=== PATIENT | female | born 1940 | race Caucasian/White ===

== ENCOUNTER → 2018-09-09 | Outpatient (CLI) | payer MEDICARE, BC ==
[2018-09-09 09:06] LABS: Basophils % (A) 1 %; Eosinophils # (A) 0.1 k/uL (0-0.7); Eosinophils % (A) 3 %; HCT 48.9 % (34.0-46.0); HGB 15.9 gm/dL (11.4-16.0); Lymphocytes # (A) 1.3 k/uL (1.0-4.8); Lymphocytes % (A) 39 %; MCH 30.9 pg (25.0-35.0); MCHC 32.4 g/dL (31.0-37.0); MCV 95.2 fL (80.0-100.0); Mean Platelet Volume 6.3; Monocytes # (A) 0.3 k/uL (0-1.0); Monocytes % (A) 9 %; Neutrophils # (A) 1.5 k/uL (1.3-7.7); Neutrophils % (A) 43 %; Platelet Count 233 k/uL (150-450); RBC 5.14 m/uL (3.80-5.40); RDW 13.5 % (11.5-15.5); WBC 3.4 k/uL (3.8-10.6)
[2018-09-09 18:00] LABS: Albumin 4.2 g/dL (3.80-4.90); Albumin/Globulin Ratio 2.63 (1.60-3.17); Anion Gap 8.9 mmol/L (4.00-12.00); Calcium 9.5 mg/dL (8.7-10.3); Carbon Dioxide 25.1 mmol/L (21.6-31.8); Globulin 1.6 g/dL (1.6-3.3); Potassium 4.2 mmol/L (3.5-5.5); Total Bilirubin 0.5 mg/dL (0.3-1.2); Total Protein 5.8 g/dL (6.2-8.2)
== END ==
LOC: LABWHC1 08:20
PROVIDERS: ATTEND Family Medicine
DX: I10 Essential (primary) hypertension (principal)
CPT/HCPCS: 36415; 80053; 85025

== ENCOUNTER → 2021-01-17 | Outpatient (CLI) | payer MEDICARE, BC ==
[2021-01-17 14:32] LABS: Basophils # (A) 0.03 X 10*3/uL (0.00-0.10); Basophils % (A) 0.7 %; Eosinophils # (A) 0.12 X 10*3/uL (0.04-0.35); Eosinophils % (A) 2.9 %; HCT 45.9 % (37.2-46.3); HGB 15.3 g/dL (12.0-15.0); Lymphocytes # (A) 1.63 X 10*3/uL (0.90-5.00); Lymphocytes % (A) 39.1 %; MCH 31.3 pg (27.0-32.0); MCHC 33.3 g/dL (32.0-37.0); MCV 93.9 fL (80.0-97.0); Mean Platelet Volume 10.2 fL (9.5-12.2); Monocytes # (A) 0.52 X 10*3/uL (0.20-1.00); Monocytes % (A) 12.5 %; Neutrophils # (A) 1.86 X 10*3/uL (1.80-7.70); Neutrophils % (A) 44.6 %; Platelet Count 254 X 10*3/uL (140-440); RBC 4.89 X 10*6/uL (4.10-5.20); RDW 13.1 % (11.5-14.5); WBC 4.17 X 10*3/uL (4.50-10.00)
[2021-01-17 14:44] LABS: African American GFR (CKD) 96.2 (60.0-200.0); Albumin 4.2 g/dL (3.80-4.90); Albumin/Globulin Ratio 2.33 (1.60-3.17); Anion Gap 4.7 mmol/L (4.00-12.00); BUN/Creat Ratio 15.71 Ratio (12.00-20.00); Bilirubin, Conjugated 0.2 mg/dL (0.20-0.40); Bilirubin,Unconjugated 0.5 mg/dL; Calcium 9.5 mg/dL (8.7-10.3); Carbon Dioxide 31.3 mmol/L (21.6-31.8); Chol/HDL Ratio 2.59; Globulin 1.8 g/dL (1.6-3.3); LDL Cholesterol,Calculated 111.4 mg/dL (0.0-131.0); Potassium 4.3 mmol/L (3.5-5.5); Total Bilirubin 0.7 mg/dL (0.3-1.2); VLDL Calculation 26.6 mg/dL (5.00-40.00)
== END | disposition home or self-care (01) ==
LOC: LABWHC1 08:48
PROVIDERS: ATTEND Internal Medicine Interventional Cardiology
DX: Z00.00 Encounter for general adult medical examination without abnormal findings (principal); E78.2 Mixed hyperlipidemia; I25.10 Atherosclerotic heart disease of native coronary artery without angina pectoris
CPT/HCPCS: 36415; 80053; 80061; 82248; 83721; 85025

== ENCOUNTER → 2021-07-20 | Outpatient (CLI) | payer MEDICARE, BC ==
[2021-07-20 15:25] LABS: African American GFR (CKD) 95.5 (60.0-200.0); Blood Urea Nitrogen 13.7 mg/dL (9.0-27.0); Non-African American GFR(CKD) 82.4 (60.0-200.0)
== END | disposition home or self-care (01) ==
LOC: LABWHC1 10:10
PROVIDERS: ATTEND Psychiatry & Neurology Neurology
DX: Z13.89 Encounter for screening for other disorder (principal)
CPT/HCPCS: 36415; 82565; 84520

== ENCOUNTER → 2021-08-18 | Outpatient (CLI) | payer MEDICARE, BC ==
[2021-08-18 08:19] VITALS: BP 111/70; PULSE 76; RESP 18; TEMP 98.1
--- NOTE | 2021-08-18 08:21 | P.CON ---
Consult Note - . Consult date: 08/18/21 Assessment/Plan:: HISTORY OF PRESENT ILLNESS: 81 yr old female presents as a referral from Dr. Palafox for an evaluation. Patient complains of neck pain at the base of her neck that radiates to her right eye > left and also her right shoulder. Patient states pain is 3 out of 10 in intensity but escalates as highest 10 out of 10 in intensity with provocation. At times patient feels that her "head will explode." She states pain is provoked with stress, fatigue, for flexion of the neck and template climate. It is alleviated with medications such as aspirin or Excedrin and Motrin, topical medications, injections, heat, physical therapy years ago, chiropractic treatments currently, home exercise regimen currently, massage currently and rest PMH: Lyme Disease PSH: Right thumb surgery. Right toe spur. Kyphoplasty SH: 2-pack-year tobacco user quit 58 years ago. Occasional alcohol use. FH: Noncontributory All: See list Meds: Denies REVIEW OF ORGAN SYSTEMS: CONSTITUTIONAL: No fevers or chills. No recent weight loss. HEENT: No visual acuity loss, eye pain, difficulties with hearing. No nosebleeds. No difficulty swallowing. RESPIRATORY: Denies any troubles with breathing or dyspnea on exertion. CARDIOVASCULAR: Denies any chest pain, palpitations, or recent heart attacks. GASTROINTESTINAL: Denies fatty food intolerance. Has change in bowel habits and gas bloat. GENITOURINARY: Denies any blood in urine. Has increased urinary frequency. NEUROLOGICAL: + numbness and tingling along the distal extremities. No seizure disorders or headaches. MUSCULOSKELETAL: + back pain SKIN: No skin cancer. No rash. PSYCHIATRIC: Denies current depression or suicidal thoughts. ENDOCRINE: Denies current thyroid disorders. Denies any blood sugar glucose intolerance. HEME/LYMPHATIC: Denies any lumps and bumps around the neck. History of deep venous thrombosis. ALLERGY/IMMUNOLOGY: No immunoglobulin therapy. No immune deficiencies. BREAST: Denies current breast lumps, pain or nipple discharge. Physical Examinations : Constitutional : Cooperative , not in acute distress . HEENT: Neck supple. No Lymphadenopathy. Normal thyroid size . Tenderness to palpation over the greater occipital nerves greater on the right than the left Eyes no ptosis , no icterus, no photophobia . Hearing intact. Normal oropharynx. No Thrush. Respiratory : Chest clear to auscultations bilaterally. No wheezing. No rhonchi. Cardiovascular : Regular rate and rhythm , S1 / S2. No S3 . No S4. Gastrointestinal : Abdomen soft. No tenderness. Bowel sounds x 4. No organomegaly . Genitourinary : Deferred. Neurologic : Cranial nerve II to XII intact. No focal neurological deficits. Psychiatric : alert & oriented x 3. Matching mood & appropriate affect. Judgment & insight intact. Lymphatic No Lymphadenopathy. Musculoskeletal : Cervical Spine Motor strength in the deltoid and biceps: Normal right side. Normal Left side Motor strength biceps and the wrist extensors: Normal right side . Normal left side Motor strength in the triceps muscle: Normal right side. Normal left side Deep tendon reflexes: Normal at the biceps. Normal at Brachioradialis. Normal at triceps Mild vertebral body tenderness to deep palpation over the C5, C6, C7 Cervical facet loading test: positive bilaterally over the C5-C6 and C6-C7 Spurling test: positive bilaterally Neck distraction test: positive bilaterally Sue sign: positive bilaterally Lumbar spine Motor strength lower extremities ,thigh and legs 5/5 Right side , 5/5 Left side Deep tendon reflexes : Normal Knee Jerk. Normal Ankle Jerk Lumbar facet Loading Test: positive Right / positive Left Range of motion of the lumbar spine Flexion 30 degrees, extension 10 degrees Straight Leg Raise test: Left/ Right positive at degree Michelle test: positive right / positive left. Severe tenderness over the Sacroiliac joint on the Right / Left sides Gaenslen test: positive bilaterally Seated flexion test: positive bilaterally. Assessment/ Plan : Recommended mentation of bilateral greater occipital nerve injections Patient may need a series based on response to treatment Discussed discontinuation of aspirin and Motrin 5 days prior to procedure Risks, benefits of procedure discussed and patient verbalized understanding All questions answered I have spent greater than 50 minutes on patient care today. Dr Perez was available by phone for the evaluation of this patient. The time was used to review the medical records including relevant urine studies and Prescription history (MAPs), review of the available imaging, evaluation and examination of the patient, coordination of care with the medical staff and if applicable referring physicians, as well as creation of the medical record PQRS Measure Charge Sheet Mode of Arrival: Ambulatory - Pain Location Right Shoulder Non-Pharmacological Interventions: Chiropractic Treatment, Heat, Ice, Massage, Position/Reposition, Stretching Pharmacological Interventions: PRN Medication, Topical Medication PQRS Narrative: Smoking Status Former smoker Blood Pressure 111/70 Pain Intensity [Right Shoulder 3 ] Scale Used Numeric (1 - 10) Hx Alcohol Use (MH) Yes Home Medications: Ambulatory Orders SUMAtriptan SUCCINATE [Imitrex] 25 mg PO DIRECTED PRN 05/26/15 Fluticasone Nasal [place] [Flonase Nasal [place]] 1 spray EA NOSTRIL DAILY PRN 08/17/21 Latanoprost/Pf [Latanoprost 0.005% Eye Drop] 1 drop BOTH EYES HS 08/17/21 Pantoprazole Sodium [Protonix] 40 mg PO Q48H 08/17/21
== END ==
LOC: PNWHC3 07:18
PROVIDERS: ATTEND Physician Assistant Medical
DX: M54.2 Cervicalgia (principal); Z87.891 Personal history of nicotine dependence; Z88.8 Allergy status to other drugs, medicaments and biological substances
CPT/HCPCS: 99211

== ENCOUNTER 2021-08-30 06:10 | Day surgery (SDC) | payer MEDICARE, BC ==
[2021-08-30 06:35] VITALS: TEMP 98.6
[2021-08-30] MEDS ORDERED: LACTATED RINGERS 1,000 ML IV ONE (06:48)
[2021-08-30] MEDS ORDERED: LACTATED RINGERS 1,000 ML IV SCH (06:54)
[2021-08-30] MEDS ORDERED: ROPIVACAINE 5MG/ML 20ML VIAL ONE (06:57)
[2021-08-30] MEDS ORDERED: methylPREDNISolone ACETATE 40 MG/ML 1 ML VIAL ONE (06:57)
[2021-08-30] MEDS ORDERED: MIDAZOLAM 2 MG/2 ML VIAL ONE (06:57)
[2021-08-30] MEDS ORDERED: fentaNYL (PF) 50 MCG/ML 2 ML AMP ONE (06:57)
--- NOTE | 2021-08-30 07:06 | P.PCN ---
Date of Procedure: 08/30/21 Procedure(s) Performed: Preoperative diagnoses= 1- Greater occipital neuralgia. 2-cervical spondylosis. 3-cervicogenic headache Postoperative diagnoses= same as preoperative diagnosis. Procedure= Bilateral Greater occipital nerve block Anesthesia= moderate sedation with Versed 1 mg and fentanyl 50 micrograms . Estimated blood loss=minimal. Procedure indication= the patient had a history of severe chronic neck pain ,and headache, diagnosed with occipital neuralgia exam was positive for severe tenderness over the occipital nerve bilaterally, she will be a good candidate occipital nerve block, patient failed conservative management Procedure description= the patient was seen and identified in the preoperative holding area, risks and benefits and alternative of the procedure and possible complications discussed with the patient, and he agreed with the preceding, patient signed the consent, an IV was started, and vital signs were monitored and were stable throughout the procedure, patient was placed in the sitting position or table and the neck area was prepped and draped with a sterile fashion, vital signs were closely monitored during the procedure, 25-gauge needle advanced 1 inch lateral to the occipital protuberance on the right side, at the location of the right occipital nerve , then after negative aspiration for heme and CSF and there was no paresthesia during the injection, 6 ml of Robivacaine 0.5% and 20 mg of Depo-Medrol injected after negative aspiration, the needle removed, and the entire same procedure was repeated for the left Greater occipital nerve. Patient tolerated the procedure well without any complication, The patient returned to supine position after the back was cleaned and a Band- Aid applied, the patient transported to recovery room in stable condition and he was monitored for 30 minutes before he was discharged home and then patient was reexamined before going home and patient was discharged in stable condition and patient will follow up with the pain clinic in a few weeks.
[2021-08-30] MEDS ORDERED: IV FLUID CONTINUATION 1,000 ML IV ONE (07:08)
[2021-08-30 07:12] VITALS: RESP 16
[2021-08-30 07:21] VITALS: BP 120/57; PULSE 63
== END 2021-08-30 07:35 | disposition home or self-care (01) ==
LOC: ORPAIN 06:10
PROVIDERS: ATTEND Specialist
DX: M54.81 Occipital neuralgia (principal); M47.812 Spondylosis without myelopathy or radiculopathy, cervical region; G44.86 Cervicogenic headache; Z88.8 Allergy status to other drugs, medicaments and biological substances
CPT/HCPCS: 64405; J2250; J1030; J3010; J2795

== ENCOUNTER → 2021-09-06 | Outpatient (CLI) | payer MEDICARE, BC ==
--- NOTE | 2021-09-06 10:19 | US ---
EXAMINATION TYPE: US thyroid st tissue head/neck DATE OF EXAM: 09/06/2021 COMPARISON: NONE CLINICAL HISTORY: E04.1. GLAND SIZE: Right Lobe: 5.0 x 1.7 x 1.7 cm Overall Parenchyma: mildly heterogeneous Left Lobe: 4.3 x 1.6 x 1.9 cm Overall Parenchyma: mildly heterogeneous Isthmus Thickness: 0.2 cm NODULES RIGHT: # of nodules measured on right: 1 1. 0.5 X 0.3 x 0.4 cm, upper lateral, cystic or almost completely cystic, anechoic nodule, which is wider than tall, with smooth margins, with echogenic foci. No prior LEFT: # of nodules measured on left: 0 ISTHMUS: # of nodules measured in the isthmus: 0 Bilateral neck scanned, no evidence of lymphadenopathy. Slightly heterogeneous normal-sized thyroid with 5 mm cystic nodule right thyroid lobe marked by tech nologists and upper pole level has single echogenic focus. IMPRESSION: Normal-sized slightly heterogeneous thyroid without significant solid nodule.
== END | disposition home or self-care (01) ==
LOC: RADUSWWP 09:39
PROVIDERS: ATTEND General Practice
DX: E04.1 Nontoxic single thyroid nodule (principal)
CPT/HCPCS: 76536

== ENCOUNTER → 2021-10-05 | Outpatient (CLI) | payer MEDICARE, BC ==
--- NOTE | 2021-10-05 10:33 | P.PN ---
Subjective Progress Note Date: 10/05/21 Principal diagnosis: A 81 yr old female with a history of severe and chronic neck pain secondary to cervical degenerative disc diseases and spondylosis with facet arthropathy presents today for evaluation status post bilateral greater occipital nerve injections #2. She states she sustained 6% pain relief status post procedures. She states she still has migraines but they are not daily anymore area. Pain level waxes and wanes throughout the day based on activity but is currently 2 out of 10, deep, achy, sharp, and a pressure-type sensation in the base of the neck with radiation of pain up the right scalp and wraps around the head as well as the right crook of her neck. Pain is provoked by extension. Pain is alleviated with medications, topicals, alternating heat and ice, monthly chiropractic treatments, monthly massage therapy sessions, sitting in a dark room, stretching and rest. Interventional pain procedures completed include BL KATIE #3 Patient is currently on ASA 81mg, Excedrin Migraine, Imitrex Patient denies any side effects of the medication(s), denies excessive drowsiness or sleepiness, denies suicidal ideation and reports that the current pain medication is helping to control the pain and improve activities of daily living. Patient denies any motor or sensory deficits. Patient denies any fever or night sweats, denies any change in the bowel movements or urination. Physical Examination: -Constitutional: Cooperative. Not in acute distress . -HEENT: Neck is supple. No lymphadenopathy. No thyromegaly. Normal thyroid size. Eyes: No ptosis , no icterus, no photophobia. ENT: No auditory deficits. Normal oropharynx. No Thrush. - Respiratory: Chest clear to auscultations bilaterally. No wheezing. No rhonchi. - Cardiovascular: Regular rate and rhythm. S1 / S2 , no S3 , no S4. - Gastrointestinal: Abdomen soft no tenderness. Bowel sounds positive in all four quadrants. No organomegaly. - Genitourinary: Deferred. - Neurologic: Cranial nerve II to XII intact. No focal neurological deficits . - Psychatric: Alert & oriented x 3. Matching mood & appropriate affect. Judgment and insight intact. - Lymphatic: No Lymphadenopathy. - Musculoskeletal: Cervical spine: Tenderness to palpation over BL GONs & LONs, R > L Muscle bulk/ tone/ strength in the bilateral upper extremities normal. Facet loading test cervical area positive. Lumbar spine: Motor bulk/ tone/ strength lower extremities , thigh and legs : 5/5 Deep tendon reflexes : Normal Knee Jerk. Normal Ankle Jerk . Vertebral body tenderness to palpation over Lumbar Facet Loading Test positive Straight Leg Raise: positive at 30 degrees right side/ left side Gaenslen's Test positive Sacral spine : Severe tenderness over the Sacroiliac joint: right side / left side Range of motion: Flexion of the lumbar spine <60 degrees Range of motion: Extension of the lumbar spine <20 degrees Gaenslen's Test positive Michelle test: positive right side / left side Assessment and plan: Chronic neck pain secondary to cervical degenerative disc disease , spondylosis with facet arthropathy without myelopathy Recommendation of bilateral greater occipital nerve and lesser occipital nerve injections. Patient is interested in a series of 3 as she feels she does not have sufficient pain relief at this time. Risks, benefits of procedure discussed and patient verbalized understanding. All questions answered. Denies medical history of diabetes. Admits to aspirin 81 mg use. Protocol for discontinuation/ continuation of medications mike procedure discussed. MAPS reviewed and it was appropriate. I have spent 31 minutes on patient care today. Dr Perez was available by phone for the evaluation of this patient. The time was used to review the medical records including relevant urine studies and Prescription history (MAPs), review of the available imaging, evaluation and examination of the patient, coordination of care with the medical staff and if applicable referring physicians, as well as creation of the medical record PQRS Measure Charge Sheet - Pain Location Neck Non-Pharmacological Interventions: Chiropractic Treatment, Stretching PQRS Narrative: Smoking Status Former smoker Pain Intensity [Neck] 3 Scale Used Numeric (1 - 10) Hx Alcohol Use (MH) Yes Home Medications: Ambulatory Orders SUMAtriptan SUCCINATE [Imitrex] 25 mg PO DIRECTED PRN 05/26/15 Latanoprost/Pf [Latanoprost 0.005% Eye Drop] 1 drop BOTH EYES Q48H 08/17/21 Pantoprazole Sodium [Protonix] 40 mg PO Q48H 08/17/21 Aspirin 1 dose PO DIRECTED PRN 10/03/21 Aspirin 650 mg PO DAILY PRN 10/03/21 Aspirin/Acetaminophen/Caffeine [Excedrin Migraine Cap[place]] 1 dose PO DIRECTED PRN 10/03/21 Calcium Carbonate [Calcium] 1,200 mg PO DAILY 10/03/21 Chlorella Supplement 1 dose PO DIRECTED 10/03/21 Cholecalciferol [Vitamin D3 (25 Mcg = 1000 Iu)] 6,000 units PO DAILY 10/03/21 Cilantro 1 tab PO DAILY 10/03/21 Magnesium 200 mg PO DAILY 10/03/21 Melatonin 5 mg PO DAILY PRN 10/03/21 Pyridoxine HCl (Vitamin B6) [Vitamin B-6] 100 mg PO DAILY 10/03/21 Vitamin C Plus Supplement 1 dose PO DAILY 10/03/21
[2021-10-05 11:53] VITALS: BP 138/68; RESP 18; TEMP 98.3
== END ==
LOC: PNWHC3 09:51
PROVIDERS: ATTEND Specialist
DX: M50.30 Other cervical disc degeneration, unspecified cervical region (principal); M47.812 Spondylosis without myelopathy or radiculopathy, cervical region; G89.29 Other chronic pain; G43.909 Migraine, unspecified, not intractable, without status migrainosus; Z87.891 Personal history of nicotine dependence; Z91.011 Allergy to milk products; Z91.012 Allergy to eggs; Z88.8 Allergy status to other drugs, medicaments and biological substances
CPT/HCPCS: 99211

== ENCOUNTER 2021-11-15 09:47 | Day surgery (SDC) | payer MEDICARE, BC ==
[2021-11-14 14:49] VITALS: BMI 29.2
[2021-11-15] MEDS ORDERED: LIDOCAINE 1% (10MG/ML) FOR IV START INTRADERMA PRN (10:00)
[2021-11-15] MEDS ORDERED: LACTATED RINGERS 1,000 ML IV SCH (10:00)
[2021-11-15 10:09] VITALS: TEMP 97.2
[2021-11-15] MEDS ORDERED: ROPIVACAINE 5MG/ML 20ML VIAL ONE (10:36)
[2021-11-15] MEDS ORDERED: methylPREDNISolone ACETATE 40 MG/ML 1 ML VIAL ONE (10:36)
[2021-11-15] MEDS ORDERED: MIDAZOLAM 2 MG/2 ML VIAL ONE (10:36)
[2021-11-15] MEDS ORDERED: fentaNYL (PF) 50 MCG/ML 2 ML AMP ONE (10:36)
--- NOTE | 2021-11-15 10:53 | P.PCN ---
Date of Procedure: 11/15/21 Procedure(s) Performed: Preoperative diagnoses= 1- Greater and Lesser occipital neuralgia. 2-cervical spondylosis with cervical facet arthropathy. 3-cervicogenic headache Postoperative diagnoses= same as preoperative diagnosis. Procedure= Bilateral Greater and lesser occipital nerve block Anesthesia= moderate sedation with Versed 2 mg and fentanyl 100 micrograms . Estimated blood loss=minimal. Procedure indication= the patient had a history of severe chronic neck pain ,and headache, diagnosed with occipital neuralgia exam was positive for severe tenderness over the occipital nerve bilaterally, she will be a good candidate occipital nerve block, patient failed conservative management Procedure description= the patient was seen and identified in the preoperative holding area, risks and benefits and alternative of the procedure and possible complications discussed with the patient, and he agreed with the preceding, patient signed the consent, an IV was started, and vital signs were monitored and were stable throughout the procedure, patient was placed in the sitting pos ition or table and the neck area was prepped and draped with a sterile fashion, vital signs were closely monitored during the procedure, 25-gauge needle advanced 1 inch lateral to the occipital protuberance on the right side, at the location of the right occipital nerve , then after negative aspiration for heme and CSF and there was no paresthesia during the injection, 3 ml of Robivacaine 0.5% and 10 mg of Depo-Medrol injected after negative aspiration, then after that the needle advanced towards the location of the right lesser occipital nerve , then after appropriate needle placement confirmed , after negative aspiration , Ropivacaine 0.5% 2 ml and 10 mg of Depo-Medrol injected after negative aspiration to block the right lesser occipital nerve the needle removed, and the entire same procedure was repeated for the left Greater and left lesser occipital nerve. Patient tolerated the procedure well without any complication, The patient returned to supine position after the back was cleaned and a Band- Aid applied, the patient transported to recovery room in stable condition and he was monitored for 30 minutes before he was discharged home and then patient was reexamined before going home and patient was discharged in stable condition and patient will follow up with the pain clinic in a few weeks.
[2021-11-15] MEDS ORDERED: IV FLUID CONTINUATION 1,000 ML IV ONE (10:55)
[2021-11-15 11:13] VITALS: BP 146/75; PULSE 68; RESP 17
== END 2021-11-15 11:25 | disposition home or self-care (01) ==
LOC: ORPAIN 09:47
PROVIDERS: ATTEND Specialist
DX: M54.81 Occipital neuralgia (principal); M47.812 Spondylosis without myelopathy or radiculopathy, cervical region; G44.86 Cervicogenic headache
CPT/HCPCS: 64405; J2250; J1030; J3010; J2795; 99152

== ENCOUNTER → 2021-12-01 | Outpatient (CLI) | payer MEDICARE, BC | LOC: PNWHC3 15:41 | PROVIDERS: ATTEND Specialist | DX: M50.30 Other cervical disc degeneration, unspecified cervical region (principal); I10 Essential (primary) hypertension; Z91.011 Allergy to milk products; Z91.012 Allergy to eggs; Z91.018 Allergy to other foods; Z91.014 Allergy to mammalian meats; Z88.8 Allergy status to other drugs, medicaments and biological substances; Z87.891 Personal history of nicotine dependence | CPT/HCPCS: 99211 ==

== ENCOUNTER 2022-01-07 18:39 | Emergency (ER) | payer MEDICARE, BC ==
[2022-01-07] MEDS ORDERED: SODIUM CHLORIDE 0.9% 500 ML 500 ML IV ONE (20:46)
--- NOTE | 2022-01-07 21:48 | CT ---
EXAMINATION TYPE: CT abdomen pelvis wo con DATE OF EXAM: 01/07/2022 COMPARISON: None HISTORY: bilateral flank pain CT DLP: 694.6 mGycm Automated exposure control for dose reduction was used. Images obtained from the diaphragm to the floor the pelvis without contrast. Lung bases are clear of consolidation. No pleural effusion. There is subsegmental atelectasis left anuj ng base. Heart size is normal. No pericardial effusion. Liver spleen and stomach pancreas and gallbladder appear intact. The bile duct are not dilated. There is no adrenal mass. Kidneys show normal size and contour. There is no hydronephrosis. Ureters a re not dilated. There is no retroperitoneal adenopathy. The bladder distends smoothly. No inguinal he rnia. No pelvic mass. No free fluid in the pelvis. Uterus is anteverted. There are multiple sigmoid d iverticula. No diverticulitis. There is L2 25% compression deformity with vertebroplasty. Abdominal aorta is atheromatous. The bony pelvis is intact. Hip joints are intact. IMPRESSION: There is sigmoid diverticulosis without diverticulitis. No evidence of renal stone or obstruction. Ap pendix not clearly seen. No sign of thickened appendix.
[2022-01-07 21:54] VITALS: RESP 18
--- NOTE | 2022-01-07 22:04 | ED ---
General Adult HPI - General Chief complaint: Urogenital Stated complaint: kidney infection Time Seen by Provider: 01/07/22 20:15 Source: patient Mode of arrival: ambulatory Limitations: no limitations - History of Present Illness Initial comments: 81 year-old female patient presents to the emergency department for evaluation for possible kidney infection. Patient has been on three courses of antibiotics over the last two months. She started with Bactrim, then completed 10 day course of Keflex, and is now taking Macrobid. States she has been having left flank pain for the last 15 days. States it is now in both sides. States symptoms started with hematuria. States she has been drinking up to 2 gallons of water per day so no longer notices the hematuria. She denies any fever or chills. States she has been nauseated but is not vomiting. She denies history of frequent UTI. She denies any abdominal pain. Denies use of blood thinners. Patient denies any recent rash, cough, shortness of breath, chest pain, diarrhea, constipation, numbness, tingling, dizziness, weakness, visual changes, or any other complaints. She is taking cranberry supplements, using essential oils, and did a detox bath today. - Related Data Home Medications Medication Instructions Recorded Confirmed SUMAtriptan succinate [Imitrex] 25 mg PO DIRECTED PRN 05/26/15 11/14/21 Latanoprost/Pf [Latanoprost 0.005% 1 drop BOTH EYES Q48H 08/17/21 11/14/21 Eye Drop] Pantoprazole Sodium [Protonix] 40 mg PO Q48H 08/17/21 11/14/21 Aspirin 650 mg PO DAILY PRN 10/03/21 11/14/21 Aspirin/Acetaminophen/Caffeine 1 dose PO DIRECTED PRN 10/03/21 10/05/21 [Excedrin Migraine Caplet] Calcium Carbonate [Calcium] 1,200 mg PO DAILY 10/03/21 11/14/21 Chlorella Supplement 1 dose PO DIRECTED 10/03/21 11/14/21 Cholecalciferol [Vitamin D3 (25 6,000 units PO DAILY 10/03/21 11/14/21 Mcg = 1000 Iu)] Cilantro 1 tab PO DAILY 10/03/21 11/14/21 Magnesium 200 mg PO DAILY 10/03/21 11/14/21 Melatonin 5 mg PO DAILY PRN 10/03/21 11/14/21 Vitamin C Plus Supplement 1 dose PO DAILY 10/03/21 10/05/21 Ibuprofen [Motrin Ib] 200 mg PO DIRECTED PRN 11/14/21 11/14/21 Thc Gummies 1 dose PO HS PRN 11/14/21 diphenhydrAMINE [Benadryl] 12.5 mg PO DAILY PRN 11/14/21 11/14/21 Allergies Allergy/AdvReac Type Severity Reaction Status Date / Time Beef Containing Products Allergy Unknown postitve Verified 01/07/22 20:03 [Beef] allergy test garlic Allergy positive Verified 01/07/22 20:03 allergy test propranolol HCl Allergy Rash/Hives Verified 01/07/22 20:03 [From Inderal LA] egg AdvReac Unknown SINUS Verified 01/07/22 20:03 SYMPTOMS AND JOINT PAIN milk AdvReac Unknown SINUS Verified 01/07/22 20:03 SYMPTOMS AND JOINT PAIN eye drops for occular HTN Allergy increased Uncoded 01/07/22 20:03 pressure, turned eyes red Review of Systems ROS Statement: Those systems with pertinent positive or pertinent negative responses have been documented in the HPI. ROS Other: All systems not noted in ROS Statement are negative. Past Medical History Past Medical History: Eye Disorder, GERD/Reflux Additional Past Medical History / Comment(s): MIGRAINES, HX FX L2, GLAUCOMA, OCULAR HYPERTENSION, Left Bundle Branch Block- follows up with [employer] yearly., HX OF SHINGLES WITH LEFT SHOULDER NERVE PAIN., NEW DIAGNOSIS OF LYME DISEASE. History of Any Multi-Drug Resistant Organisms: None Reported Past Surgical History: Tubal Ligation Additional Past Surgical History / Comment(s): BILATERAL CATARACTS, LASER FOR GLAUCOMA, CRIS EYELID SX, RECTAL FISSURE REPAIR, KYPHPLASTY, RIGHT THUMB JOINT REPLACEMENT, BIG TOE RIGHT FOOT BONE SPUR REMOVED., PAIN CLINIC PROCEDURES Past Anesthesia/Blood Transfusion Reactions: No Reported Reaction Past Psychological History: No Psychological Hx Reported Smoking Status: Former smoker Past Alcohol Use History: Daily Past Drug Use History: Marijuana - Past Family History Father Family Medical History: Cancer Additional Family Medical History / Comment(s): Lung cancer. Sister(s) Family Medical History: Cancer Additional Family Medical History / Comment(s): Breast cancer. Mother Family Medical History: No Reported History General Exam Limitations: no limitations General appearance: alert, in no apparent distress, other (This is a well- developed, well-nourished elderly female patient in no acute distress.) Eye exam: Present: normal appearance, PERRL, EOMI. Absent: scleral icterus, conjunctival injection, periorbital swelling Respiratory exam: Present: normal lung sounds bilaterally. Absent: respiratory distress, wheezes, rales, rhonchi, stridor Cardiovascular Exam: Present: regular rate, normal rhythm, normal heart sounds. Absent: systolic murmur, diastolic murmur, rubs, gallop, clicks GI/Abdominal exam: Present: soft, normal bowel sounds. Absent: distended, tenderness, guarding, rebound, rigid Back exam: Present: normal inspection, CVA tenderness (R), CVA tenderness (L) Neurological exam: Present: alert, oriented X3, CN II-XII intact Psychiatric exam: Present: normal affect, normal mood Skin exam: Present: warm, dry, intact, normal color. Absent: rash Course Vital Signs 01/07/22 01/07/22 20:00 21:53 Temperature 97.7 F Pulse Rate 78 68 Respiratory 19 18 Rate Blood Pressure 169/92 155/74 O2 Sat by Pulse 99 94 L Oximetry Medical Decision Making - Medical Decision Making 81-year-old female patient presents for evaluation of worsening back pain and urinary symptoms. Physical examination did reveal bilateral CVA tenderness. She is neurovascularly and neurologically intact. No red flags spinal symptoms. Labs reviewed and are unremarkable. Urinalysis is negative. CT abdomen and pelvis without contrast was obtained and is normal. I did discuss findings and results with her. She'll be discharged. Her primary care physician for recheck early next week. She is instructed to continue her antibiotic. Return parameters were discussed in detail. She verbalizes understanding and agrees with this plan. My attending is Dr. Hunt. - Lab Data Result diagrams: 01/07/22 21:40 01/07/22 21:40 Lab Results 01/07/22 01/07/22 01/07/22 Range/Units 21:40 21:40 21:40 WBC 5.4 (3.8-10.6) k/uL RBC 4.67 (3.80-5.40) m/uL Hgb 14.9 (11.4-16.0) gm/dL Hct 44.4 (34.0-46.0) % MCV 95.0 (80.0-100.0) fL MCH 32.0 (25.0-35.0) pg MCHC 33.7 (31.0-37.0) g/dL RDW 12.7 (11.5-15.5) % Plt Count 230 (150-450) k/uL MPV 7.4 Neutrophils % 50 % Lymphocytes % 34 % Monocytes % 9 % Eosinophils % 3 % Basophils % 1 % Neutrophils # 2.7 (1.3-7.7) k/uL Lymphocytes # 1.8 (1.0-4.8) k/uL Monocytes # 0.5 (0-1.0) k/uL Eosinophils # 0.1 (0-0.7) k/uL Basophils # 0.1 (0-0.2) k/uL Sodium 134 L (137-145) mmol/L Potassium 4.2 (3.5-5.1) mmol/L Chloride 102 (98-107) mmol/L Carbon Dioxide 24 (22-30) mmol/L Anion Gap 8 mmol/L BUN 19 H (7-17) mg/dL Creatinine 0.86 (0.52-1.04) mg/dL Est GFR (CKD-EPI)AfAm 75 (>60 ml/min/1.73 sqM) Est GFR (CKD-EPI)NonAf 65 (>60 ml/min/1.73 sqM) Glucose 95 (74-99) mg/dL Plasma Lactic Acid Jose A (0.7-2.0) mmol/L Calcium 9.3 (8.4-10.2) mg/dL Total Bilirubin 0.6 (0.2-1.3) mg/dL AST 36 (14-36) U/L ALT 20 (4-34) U/L Alkaline Phosphatase 63 (38-126) U/L Total Protein 6.6 (6.3-8.2) g/dL Albumin 4.4 (3.5-5.0) g/dL Urine Color Yellow Urine Appearance Clear (Clear) Urine pH 5.5 (5.0-8.0) Ur Specific Yeoman 1.012 (1.001-1.035) Urine Protein Negative (Negative) Urine Glucose (UA) Negative (Negative) Urine Ketones Negative (Negative) Urine Blood Negative (Negative) Urine Nitrite Negative (Negative) Urine Bilirubin Negative (Negative) Urine Urobilinogen <2.0 (<2.0) mg/dL Ur Leukocyte Esterase Negative (Negative) 01/07/22 Range/Units 21:40 WBC (3.8-10.6) k/uL RBC (3.80-5.40) m/uL Hgb (11.4-16.0) gm/dL Hct (34.0-46.0) % MCV (80.0-100.0) fL MCH (25.0-35.0) pg MCHC (31.0-37.0) g/dL RDW (11.5-15.5) % Plt Count (150-450) k/uL MPV Neutrophils % % Lymphocytes % % Monocytes % % Eosinophils % % Basophils % % Neutrophils # (1.3-7.7) k/uL Lymphocytes # (1.0-4.8) k/uL Monocytes # (0-1.0) k/uL Eosinophils # (0-0.7) k/uL Basophils # (0-0.2) k/uL Sodium (137-145) mmol/L Potassium (3.5-5.1) mmol/L Chloride (98-107) mmol/L Carbon Dioxide (22-30) mmol/L Anion Gap mmol/L BUN (7-17) mg/dL Creatinine (0.52-1.04) mg/dL Est GFR (CKD-EPI)AfAm (>60 ml/min/1.73 sqM) Est GFR (CKD-EPI)NonAf (>60 ml/min/1.73 sqM) Glucose (74-99) mg/dL Plasma Lactic Acid Jose A 1.0 (0.7-2.0) mmol/L Calcium (8.4-10.2) mg/dL Total Bilirubin (0.2-1.3) mg/dL AST (14-36) U/L ALT (4-34) U/L Alkaline Phosphatase (38-126) U/L Total Protein (6.3-8.2) g/dL Albumin (3.5-5.0) g/dL Urine Color Urine Appearance (Clear) Urine pH (5.0-8.0) Ur Specific Yeoman (1.001-1.035) Urine Protein (Negative) Urine Glucose (UA) (Negative) Urine Ketones (Negative) Urine Blood (Negative) Urine Nitrite (Negative) Urine Bilirubin (Negative) Urine Urobilinogen (<2.0) mg/dL Ur Leukocyte Esterase (Negative) - Radiology Data Radiology results: report reviewed, image reviewed CT abdomen and pelvis is obtained. Report was reviewed in its entirety. Impression by Dr. Kan shows sigmoid diverticulosis without diverticulitis. No evidence of renal stone or obstruction. Appendix not clearly seen. No sign of thickened appendix. Disposition Clinical Impression: Back pain Disposition: HOME SELF-CARE Condition: Good Instructions (If sedation given, give patient instructions): Urinary Tract Infection in Women (ED), Back Pain (ED) Additional Instructions: Follow-up with the primary care physician for recheck in 1-2 days. Continue antibiotic. Return for any new, worsening, or concerning symptoms. Is patient prescribed a controlled substance at d/c from ED?: No Referrals: Thiago Fowler DO [Primary Care Provider] - 1-2 days Time of Disposition: 22:58
[2022-01-07 22:21] LABS: Appearance,Urine Clear (Clear); Basophils # (A) 0.1 k/uL (0-0.2); Basophils % (A) 1 %; Bilirubin,Urine Negative (Negative); Blood,Urine Negative (Negative); Color,Urine Yellow; Eosinophils # (A) 0.1 k/uL (0-0.7); Eosinophils % (A) 3 %; Glucose,Urine (UA) Negative (Negative); HCT 44.4 % (34.0-46.0); HGB 14.9 gm/dL (11.4-16.0); Ketones,Urine Negative (Negative); Leukocyte Esterase,Urine Negative (Negative); Lymphocytes # (A) 1.8 k/uL (1.0-4.8); Lymphocytes % (A) 34 %; MCHC 33.7 g/dL (31.0-37.0); Mean Platelet Volume 7.4; Monocytes # (A) 0.5 k/uL (0-1.0); Monocytes % (A) 9 %; Neutrophils # (A) 2.7 k/uL (1.3-7.7); Neutrophils % (A) 50 %; Nitrite,Urine Negative (Negative); PH, Urine 5.5 (5.0-8.0); Platelet Count 230 k/uL (150-450); Protein,Urine Negative (Negative); RBC 4.67 m/uL (3.80-5.40); RDW 12.7 % (11.5-15.5); Specific Gravity,Urine 1.012 (1.001-1.035); Urobilinogen,Urine <2.0 mg/dL (<2.0); WBC 5.4 k/uL (3.8-10.6)
[2022-01-07 22:33] LABS: Albumin 4.4 g/dL (3.5-5.0); Calcium 9.3 mg/dL (8.4-10.2); Potassium 4.2 mmol/L (3.5-5.1); Total Bilirubin 0.6 mg/dL (0.2-1.3); Total Protein 6.6 g/dL (6.3-8.2)
[2022-01-07 23:28] VITALS: BP 157/76; PULSE 65; TEMP 97.9
== END 2022-01-07 23:32 | disposition home or self-care (01) ==
LOC: EC 18:39
DX: M54.50 Low back pain, unspecified (principal); K21.9 Gastro-esophageal reflux disease without esophagitis; Z79.83 Long term (current) use of bisphosphonates; Z87.891 Personal history of nicotine dependence; Z91.018 Allergy to other foods; Z91.012 Allergy to eggs; Z91.011 Allergy to milk products
CPT/HCPCS: 36415; 74176; 80053; 81003; 83605; 85025; 99284

== ENCOUNTER → 2022-04-18 | Outpatient (CLI) | payer MEDICARE, BC ==
[2022-04-18 14:18] LABS: Basophils # (A) 0.03 X 10*3/uL (0.00-0.10); Eosinophils % (A) 3.3 %; HCT 45.1 % (37.2-46.3); HGB 15.2 g/dL (12.0-15.0); Immature Grans, Automated 0 %; Lymphocytes # (A) 0.94 X 10*3/uL (0.90-5.00); Lymphocytes % (A) 31.1 %; MCH 31.5 pg (27.0-32.0); MCHC 33.7 g/dL (32.0-37.0); MCV 93.6 fL (80.0-97.0); Mean Platelet Volume 10.4 fL (9.5-12.2); Monocytes # (A) 0.43 X 10*3/uL (0.20-1.00); Monocytes % (A) 14.2 %; NRBC Per 100 WBC 0 /100 WBCS (0.0-0.0); Neutrophils # (A) 1.52 X 10*3/uL (1.80-7.70); Neutrophils % (A) 50.4 %; Platelet Count 212 X 10*3/uL (140-440); RBC 4.82 X 10*6/uL (4.10-5.20); RDW 13.4 % (11.5-14.5); WBC 3.02 X 10*3/uL (4.50-10.00)
[2022-04-18 14:47] LABS: ALT 20 U/L (8-44); AST 23 U/L (13-35); African American GFR (CKD) 93.7 (60.0-200.0); Albumin 4.3 g/dL (3.8-4.9); Albumin/Globulin Ratio 2.69 (1.60-3.17); Alkaline Phosphatase 67 U/L (41-126); BUN/Creat Ratio 20.65 Ratio (12.00-20.00); Blood Urea Nitrogen 14.6 mg/dL (9.0-27.0); Calcium 9.4 mg/dL (8.7-10.3); Carbon Dioxide 27.8 mmol/L (20.0-27.5); Chloride 102 mmol/L (96-109); Chol/HDL Ratio 2.38 Ratio; Globulin 1.6 g/dL (1.6-3.3); Glucose 101 mg/dL (70-110); LDL Cholesterol,Calculated 130.4 mg/dL (0.0-131.0); Non-African American GFR(CKD) 80.9 (60.0-200.0); Potassium 4.8 mmol/L (3.5-5.5); Sodium 141 mmol/L (135-145); Total Protein 5.9 g/dL (6.2-8.2); VLDL Calculation 15.56 mg/dL (5.00-40.00)
== END | disposition home or self-care (01) ==
LOC: LABWHC1 10:14
PROVIDERS: ATTEND Family Medicine
DX: E78.5 Hyperlipidemia, unspecified (principal); E08.6 Diabetes mellitus due to underlying condition with other specified complications; R42 Dizziness and giddiness
CPT/HCPCS: 36415; 80053; 80061; 84443; 85025

== ENCOUNTER → 2024-08-05 | Outpatient (CLI) | payer MEDICARE, BC ==
--- NOTE | 2024-08-05 11:54 | XR ---
EXAMINATION TYPE: XR chest 2V DATE OF EXAM: 08/05/2024 11:48 AM COMPARISON: Chest radiographs from 05/26/2015 TECHNIQUE: XR chest 2V Frontal and lateral views of the chest. CLINICAL INDICATION:Female, 84 years old with history of PRE SURG TESTING; type of surgery not report ed. FINDINGS: Lungs/Pleura: There is no evidence of pleural effusion, focal consolidation, or pneumothorax. Pulmonary vascularity: Unremarkable. Heart/mediastinum: Cardiomediastinal silhouette is unremarkable. Musculoskeletal: No acute osseous pathology. Mild multilevel degenerative disc disease. IMPRESSION: No acute cardiopulmonary disease/process. [facility], , 08/05/2024 11:52 AM
[2024-08-05 12:11] LABS: INR 1.2 (<1.2); Partial Thromboplastin Time 23.9 sec (22.0-30.0); Prothrombin Time 12.5 sec (10.0-12.5)
[2024-08-05 15:18] LABS: Basophils # (A) 0.02 X 10*3/uL (0.00-0.10); Basophils % (A) 0.4 %; Eosinophils # (A) 0.08 X 10*3/uL (0.04-0.35); Eosinophils % (A) 1.5 %; HCT 45.8 % (37.2-46.3); HGB 15.6 g/dL (12.0-15.0); Lymphocytes # (A) 1.34 X 10*3/uL (0.90-5.00); MCH 30.5 pg (27.0-32.0); MCHC 34.1 g/dL (32.0-37.0); MCV 89.6 FL (80.0-97.0); Mean Platelet Volume 10.6 FL (9.5-12.2); Monocytes % (A) 9.3 %; NRBC Per 100 WBC 0 X 10*3/uL (0.00-0.01); Neutrophils # (A) 3.39 X 10*3/uL (1.80-7.70); Neutrophils % (A) 63.4 %; Platelet Count 250 X 10*3/uL (140-440); RBC 5.11 X 10*6/uL (4.10-5.20); RDW 13.2 % (11.5-14.5); WBC 5.35 X 10*3/uL (4.50-10.00)
[2024-08-05 15:55] LABS: Appearance,Urine Clear (Clear); Bilirubin,Urine Negative (Negative); Blood,Urine Negative (Negative); Color,Urine Yellow (Yellow); Ketones,Urine Negative (Negative); Nitrite,Urine Negative (Negative); Specific Gravity,Urine 1.011 (1.001-1.030); Urobilinogen,Urine 0.2 E.U./DL
[2024-08-05 16:01] LABS: Bacteria,Urine None Seen (None Seen)
[2024-08-05 17:01] LABS: BUN/Creat Ratio 17.38 Ratio (12.00-20.00); Blood Urea Nitrogen 13.9 mg/dL (9.0-27.0); Calcium 9.5 mg/dL (8.7-10.3); Carbon Dioxide 25.7 mmol/L (21.6-31.8); Chloride 101 mmol/L (96-109); Glucose 155 mg/dL (70-110); Potassium 4.1 mmol/L (3.5-5.5); Sodium 137 mmol/L (135-145)
== END | disposition home or self-care (01) ==
LOC: LABPAT 11:11
PROVIDERS: ATTEND Orthopaedic Surgery Orthopaedic Surgery of the Spine
DX: Z01.818 Encounter for other preprocedural examination (principal); Z22.322 Carrier or suspected carrier of Methicillin resistant Staphylococcus aureus; M43.10 Spondylolisthesis, site unspecified; M48.00 Spinal stenosis, site unspecified
CPT/HCPCS: 71046; 80048; 81001; 85025; 85610; 85730; 86850; 86900; 86901; 87070